=== PATIENT | female | born 1980 | race Caucasian/White ===

== ENCOUNTER 2017-01-30 09:29 | Emergency (ER) | payer MEDICAID, OTHER ==
[2017-01-30] MEDS ORDERED: BABY ASPIRIN 81 MG CHEW PO ONE (09:51)
[2017-01-30] MEDS ORDERED: Sodium Chloride 0.9% 1000 ML 1,000 ML IV STA (09:51)
[2017-01-30] MEDS ORDERED: ATARAX 25 MG PO ONE (09:53)
--- NOTE | 2017-01-30 09:59 | ERPHSYRPT ---
- History of Present Illness Time Seen by Provider: 01/30/17 09:35 Source: patient Patient Subjective Stated Complaint: pt brought in via co worker from work for chest pressure that started at 0600 today with dizziness and light headed, no cough or fever Triage Nursing Assessment: pt walked in , alert, resp easy, chest clear, skin w/ d pink, Physician History: CC: dizzy Hx: 36 y/o patient currently on menses. She reports feeling dizzy like she is going to pass out. No vertigo. No N/V/D. She was working at [employer] and felt worse so a corworker brought her to ER. No chest pain or dyspnea but told nurse she has 7/10 heaviness in her chest. No hx of VTE disease. No OCP use. No leg swelling but had a leg cramp this AM. No abd pain. Allergies/Adverse Reactions: No Known Drug Allergies Allergy (Unverified 01/30/17 09:44) Hx Influenza Vaccination/Date Given: No Hx Pneumococcal Vaccination/Date Given: No Immunizations Up to Date: Yes - Review of Systems Constitutional: No Symptoms Eyes: No Symptoms Ears, Nose, & Throat: No Symptoms Respiratory: No Cough, No Dyspnea Cardiac: Chest Pain (heaviness) Abdominal/Gastrointestinal: No Abdominal Pain, No Nausea, No Vomiting, No Diarrhea Skin: No Rash Neurological: Dizziness, No Focal Weakness, No Headache, No Parasthesia All Other Systems: Reviewed and Negative - Past Medical History Pertinent Past Medical History: No - Past Surgical History Past Surgical History: Yes Female Surgical History: Section - Social History Smoking Status: Current some day smoker Exposure to second hand smoke: No Drug Use: none Patient Lives Alone: No - Female History Hx Last Menstrual Period: now - Nursing Vital Signs Nursing Vital Signs: Initial Vital Signs Temperature 98.4 F 01/30/17 09:38 Pulse Rate 89 01/30/17 09:38 Respiratory Rate 16 01/30/17 09:38 Blood Pressure 151/68 01/30/17 09:38 O2 Sat by Pulse Oximetry 97 01/30/17 09:38 Pain Scale Pain Intensity 0 - Physical Exam General Appearance: alert Eye Exam: PERRL/EOMI Ears, Nose, Throat Exam: normal ENT inspection, moist mucous membranes Neck Exam: normal inspection, non-tender, supple Respiratory Exam: normal breath sounds, lungs clear Cardiovascular Exam: regular rate/rhythm Gastrointestinal/Abdomen Exam: soft, No tenderness, No distention Back Exam: normal inspection Extremity Exam: normal inspection, normal range of motion Neurologic Exam: alert, oriented x 3, cooperative, sensation nml, No motor deficits Skin Exam: warm, dry, No rash SpO2 Interpretation: normal SpO2: 97 Oxygen Delivery: Room Air - Course Nursing assessment & vital signs reviewed: Yes EKG Interpreted by Me: RATE (71), Sinus Rhythm, NORMAL AXIS, NORMAL INTERVALS ( QTc 424), NORMAL QRS, Non-specific ST Changes - Radiology Exams cxr X-ray Interpretation: Teleradiologist Report, Negative Ordered Tests: Active Orders 24 hr Category Date Time Status Fraud Investigator STAT Care 01/30/17 09:52 Active Clean Catch Urine Specimen STAT Care 01/30/17 09:51 Active EKG-ER Only STAT Care 01/30/17 09:51 Active IV Insertion STAT Care 01/30/17 09:51 Active Pulse Oximetry (ED) STAT Care 01/30/17 09:51 Active CHEST 1 VIEW (PORTABLE) Stat Exams 01/30/17 09:52 Completed CBC W DIFF Stat Lab 01/30/17 10:05 Completed CMP Stat Lab 01/30/17 10:05 Completed HCG QUALITATIVE,SERUM Stat Lab 01/30/17 10:05 Completed NT PRO BNP Stat Lab 01/30/17 10:59 Completed TROPONIN Q3H Lab 01/30/17 10:05 Completed TROPONIN Q3H Lab 01/30/17 12:36 Completed TROPONIN Q3H Lab 01/30/17 16:00 Ordered TROPONIN Q3H Lab 01/30/17 19:00 Ordered TROPONIN Q3H Lab 01/30/17 22:00 Ordered Urine Triage Profile Stat Lab 01/30/17 10:05 Completed Medication Summary Discontinued Medications Generic Name Dose Route Start Last Admin Trade Name Freq PRN Reason Stop Dose Admin Aspirin 81 mg 01/30/17 09:51 01/30/17 10:17 Baby Aspirin 81 Mg Chew PO 01/30/17 09:52 81 mg STAT ONE Administration Aspirin Confirm 01/30/17 10:15 Baby Aspirin 81 Mg Chew Administered 01/30/17 10:16 Dose 81 mg .ROUTE .STK-MED ONE Hydroxyzine HCl 50 mg 01/30/17 09:53 01/30/17 10:16 Atarax 25 Mg PO 01/30/17 09:54 50 mg STAT ONE Administration Hydroxyzine HCl Confirm 01/30/17 10:15 Atarax 25 Mg Administered 01/30/17 10:16 Dose 50 mg .ROUTE .STK-MED ONE Sodium Chloride 1,000 mls @ 999 mls/hr 01/30/17 09:51 01/30/17 10:17 Sodium Chloride 0.9% 1000 Ml IV 01/30/17 10:51 999 mls/hr .Q1H1M STA Administration Sodium Chloride Confirm 01/30/17 10:15 Sodium Chloride 0.9% 1000 Ml Administered 01/30/17 10:16 Dose 1,000 mls @ ud .ROUTE .STK-MED ONE Lab/Rad Data: Laboratory Result Diagrams 01/30/17 10:05 01/30/17 10:05 Laboratory Results 01/30/17 01/30/17 01/30/17 Range/Units 12:36 10:59 10:05 WBC (4.0-10.5) K/mm3 RBC (4.1-5.4) M/mm3 Hgb (12.0-16.0) gm/dl Hct (35-47) % MCV (78-100) fl MCH (26-32) pg MCHC (32-36) g/dl RDW (11.5-14.0) % Plt Count (150-450) K/mm3 MPV (6-9.5) fl Gran % (36.0-66.0) % Lymphocytes % (24.0-44.0) % Monocytes % (0.0-12.0) % Eosinophils % (0.00-5.0) % Basophils % (0.0-0.4) % Basophils # (0-0.4) Sodium (136-145) mEq/L Potassium (3.5-5.1) mEq/L Chloride (98-107) mEq/L Carbon Dioxide (21-32) mEq/L Anion Gap (5-15) MEQ/L BUN (9-20) mg/dL Creatinine (0.55-1.30) mg/dl Estimated GFR ML/MIN Glucose (70-110) MG/DL Calcium (8.5-10.1) mg/dL Total Bilirubin (0.2-1.0) mg/dL AST (15-37) U/L ALT (12-78) U/L Alkaline Phosphatase (46-116) U/L Troponin I < 0.017 (0.000-0.056) ng/ml NT-Pro-B Natriuret Pep 68 (0-125) pg/ml Serum Total Protein (6.4-8.2) gm/dL Albumin (3.4-5.0) g/dL Serum , Qual NEGATIVE (Negative) Urine Opiates Level (NEGATIVE) Ur Methadone (NEGATIVE) Urine Barbiturates (NEGATIVE) Ur Phencyclidine (PCP) (NEGATIVE) Urine Amphetamine (NEGATIVE) U Benzodiazepine Level (NEGATIVE) Urine Cocaine (NEGATIVE) Urine Marijuana (THC) (NEGATIVE) 01/30/17 01/30/17 01/30/17 Range/Units 10:05 10:05 10:05 WBC (4.0-10.5) K/mm3 RBC (4.1-5.4) M/mm3 Hgb (12.0-16.0) gm/dl Hct (35-47) % MCV (78-100) fl MCH (26-32) pg MCHC (32-36) g/dl RDW (11.5-14.0) % Plt Count (150-450) K/mm3 MPV (6-9.5) fl Gran % (36.0-66.0) % Lymphocytes % (24.0-44.0) % Monocytes % (0.0-12.0) % Eosinophils % (0.00-5.0) % Basophils % (0.0-0.4) % Basophils # (0-0.4) Sodium 141 (136-145) mEq/L Potassium 3.6 (3.5-5.1) mEq/L Chloride 105 (98-107) mEq/L Carbon Dioxide 26.0 (21-32) mEq/L Anion Gap 13.6 (5-15) MEQ/L BUN 14 (9-20) mg/dL Creatinine 0.93 (0.55-1.30) mg/dl Estimated GFR > 60 ML/MIN Glucose 164 H (70-110) MG/DL Calcium 8.7 (8.5-10.1) mg/dL Total Bilirubin 0.30 (0.2-1.0) mg/dL AST 17 (15-37) U/L ALT 28 (12-78) U/L Alkaline Phosphatase 57 (46-116) U/L Troponin I < 0.017 (0.000-0.056) ng/ml NT-Pro-B Natriuret Pep (0-125) pg/ml Serum Total Protein 7.1 (6.4-8.2) gm/dL Albumin 3.7 (3.4-5.0) g/dL Serum , Qual (Negative) Urine Opiates Level NEG. (NEGATIVE) Ur Methadone NEG. (NEGATIVE) Urine Barbiturates NEG. (NEGATIVE) Ur Phencyclidine (PCP) NEG. (NEGATIVE) Urine Amphetamine NEG. (NEGATIVE) U Benzodiazepine Level NEG. (NEGATIVE) Urine Cocaine NEG. (NEGATIVE) Urine Marijuana (THC) NEG. (NEGATIVE) 01/30/17 Range/Units 10:05 WBC 7.1 (4.0-10.5) K/mm3 RBC 4.62 (4.1-5.4) M/mm3 Hgb 13.3 (12.0-16.0) gm/dl Hct 40.5 (35-47) % MCV 87.7 (78-100) fl MCH 28.8 (26-32) pg MCHC 32.8 (32-36) g/dl RDW 13.1 (11.5-14.0) % Plt Count 226 (150-450) K/mm3 MPV 10.2 H (6-9.5) fl Gran % 79.1 H (36.0-66.0) % Lymphocytes % 15.5 L (24.0-44.0) % Monocytes % 4.9 (0.0-12.0) % Eosinophils % 0.4 (0.00-5.0) % Basophils % 0.1 (0.0-0.4) % Basophils # 0.01 (0-0.4) Sodium (136-145) mEq/L Potassium (3.5-5.1) mEq/L Chloride (98-107) mEq/L Carbon Dioxide (21-32) mEq/L Anion Gap (5-15) MEQ/L BUN (9-20) mg/dL Creatinine (0.55-1.30) mg/dl Estimated GFR ML/MIN Glucose (70-110) MG/DL Calcium (8.5-10.1) mg/dL Total Bilirubin (0.2-1.0) mg/dL AST (15-37) U/L ALT (12-78) U/L Alkaline Phosphatase (46-116) U/L Troponin I (0.000-0.056) ng/ml NT-Pro-B Natriuret Pep (0-125) pg/ml Serum Total Protein (6.4-8.2) gm/dL Albumin (3.4-5.0) g/dL Serum , Qual (Negative) Urine Opiates Level (NEGATIVE) Ur Methadone (NEGATIVE) Urine Barbiturates (NEGATIVE) Ur Phencyclidine (PCP) (NEGATIVE) Urine Amphetamine (NEGATIVE) U Benzodiazepine Level (NEGATIVE) Urine Cocaine (NEGATIVE) Urine Marijuana (THC) (NEGATIVE) - Progress Progress Note: 01/30/17 11:55 Pt is feeling much better after atarax and IVF. Will get 3 hour troponin and release if stable. Advised she have her blood sugar rechecked thru family doctor. 01/30/17 14:24 Second troponin negative. She feels much better. Advised follow up with Dr Frazier. She wants to go home. Her discomfort was vague and atypical. Rx hydroxyzine. Counseled pt/family regarding: lab results, diagnosis, need for follow-up, rad results - Departure Time of Disposition: 14:25 Departure Disposition: Home Clinical Impression: Dizziness, Atypical chest pain Condition: Stable Critical Care Time: No Referrals: CHESTER FRAZIER [Primary Care Provider] - Instructions: Atypical Chest Pain Additional Instructions: Sip plenty of fluids. No driving today or while taking hydroxyzine. Rx hydroxyzine. Follow up tomorrow with Dr Frazier. Prescriptions: Hydroxyzine HCl 1 tab PO Q6H PRN PRN #15 tablet PRN Reason: rash,rest
[2017-01-30] MEDS ORDERED: ATARAX 25 MG ONE (10:15)
[2017-01-30] MEDS ORDERED: BABY ASPIRIN 81 MG CHEW ONE (10:15)
[2017-01-30] MEDS ORDERED: Sodium Chloride 0.9% 1000 ML 1,000 ML ONE (10:15)
[2017-01-30 10:26] LABS: BASOPHIL % 0.1 % (0.0-0.4); Eosinophil % 0.4 % (0.00-5.0); Granulocytes % 79.1 % (36.0-66.0); Lymphocytes % 15.5 % (24.0-44.0); Mean Cell Volume 87.7 fl (78-100); Mean Corpuscular Hemoglobin 28.8 pg (26-32); Mean Platelet Volume 10.2 fl (6-9.5); Monocytes % 4.9 % (0.0-12.0); Platelet Count 226 K/mm3 (150-450); Red Blood Count 4.62 M/mm3 (4.1-5.4); Red Cell Distribution Width 13.1 % (11.5-14.0); White Blood Count 7.1 K/mm3 (4.0-10.5)
[2017-01-30 10:54] LABS: ALBUMIN 3.7 g/dL (3.4-5.0); ALKALINE PHOSPHATASE 57 U/L (46-116); ANION GAP 13.6 MEQ/L (5-15); BLOOD UREA NITROGEN 14 mg/dL (9-20); CHLORIDE 105 mEq/L (98-107); Glucose 164 MG/DL (70-110); Potassium 3.6 mEq/L (3.5-5.1); SGOT/AST 17 U/L (15-37); SGPT/ALT 28 U/L (12-78); SODIUM 141 mEq/L (136-145); Total Protein 7.1 gm/dL (6.4-8.2)
--- NOTE | 2017-01-30 11:13 | XRAY ---
Indication: Chest pain and dizziness. Comparison: None Portable apical lordotic chest demonstrates normal heart, lungs, and bony thorax with a few incidental calcified granulomas.
[2017-01-30 14:24] VITALS: BP 144/75; PULSE 64
[2017-01-30 14:26] VITALS: O2SAT 97
== END 2017-01-30 14:34 | disposition home or self-care (01) ==
LOC: ED 09:29
DX: R42 Dizziness and giddiness (principal); R07.89 Other chest pain
CPT/HCPCS: 36000; 36415; 71010; 80053; 80307; 83880; 84484; 84703; 85025; 93005; 93041; 96360; 99285; A9270-GY

== ENCOUNTER 2017-02-11 07:36 | Emergency (ER) | payer OTHER ==
--- NOTE | 2017-02-11 07:47 | ERPHSYRPT ---
- History of Present Illness Time Seen by Provider: 02/11/17 07:40 Source: patient Exam Limitations: no limitations Physician History: The patient is a 36-year-old female complaining of worsening left ear pain for 4 days. She's had a slight cold a few days before. She denies any drainage. The left side of her face is now beginning to hurt. She did not take any Tylenol or ibuprofen. Past medical history is unremarkable. Timing/Duration: gradual onset Severity: moderate ENT Location: ear (L) Prearrival Treatment: no prearrival treatment Modifying Factors: Improves With: nothing Associated Symptoms: ear pain (L), facial pain/swelling, No ear drainage Allergies/Adverse Reactions: No Known Drug Allergies Allergy (Verified 02/11/17 07:48) Hx Influenza Vaccination/Date Given: No Hx Pneumococcal Vaccination/Date Given: No - Review of Systems Constitutional: No Fever, No Chills Eyes: No Symptoms Ears, Nose, & Throat: Ear Pain Respiratory: No Cough, No Dyspnea Cardiac: No Chest Pain, No Edema, No Syncope Abdominal/Gastrointestinal: No Abdominal Pain, No Nausea, No Vomiting, No Diarrhea Genitourinary Symptoms: No Dysuria Musculoskeletal: No Back Pain, No Neck Pain Skin: No Rash Neurological: No Dizziness, No Focal Weakness, No Sensory Changes Psychological: No Symptoms Endocrine: No Symptoms Hematologic/Lymphatic: No Symptoms Immunological/Allergic: No Symptoms All Other Systems: Reviewed and Negative - Past Medical History Pertinent Past Medical History: No - Past Surgical History Past Surgical History: Yes Female Surgical History: Section - Social History Smoking Status: Current some day smoker Exposure to second hand smoke: No Drug Use: none Patient Lives Alone: No - Nursing Vital Signs Nursing Vital Signs: Initial Vital Signs Temperature 97.7 F 02/11/17 07:40 Pulse Rate 72 02/11/17 07:40 Respiratory Rate 18 02/11/17 07:40 Blood Pressure 138/81 02/11/17 07:40 O2 Sat by Pulse Oximetry 97 02/11/17 07:40 Pain Scale Pain Intensity 7 - Physical Exam General Appearance: mild distress Eye Exam: bilateral eye: normal inspection Ear Exam: bilateral ear: other (cerumen impaction) Nasal Exam: normal inspection Throat Exam: pharynx normal, moist mucus membranes, No tonsillar exudate Neck Exam: supple Cardiovascular/Respiratory Exam: normal breath sounds, regular rate/rhythm Abdominal Exam: non-tender, soft Neurologic Exam: alert, oriented x 3, sensation nml, No motor deficits Skin Exam: normal color, warm, dry SpO2 Interpretation: normal Oxygen Delivery: Room Air Ordered Tests: Active Orders 24 hr Category Date Time Status Ear Irrigation STAT Care 02/11/17 07:52 Active - Progress Progress: improved Progress Note: 02/11/17 08:54 Extensive left here irrigation with warm water was performed in addition to an ear curet. However, even after significant amounts of cerumen was removed, there was still old hard cerumen covering the left tympanic membrane. In more moderate attempt to remove the cerumen of the right ear was performed unsuccessfully. The left ear canal that is now exposed is erythematous and tender. This is likely causing the patient's problem. The patient will be given Augmentin for 10 days. The patient is to use [id number] Debrox and flushing her ear in the shower. Counseled pt/family regarding: diagnosis, need for follow-up - Departure Time of Disposition: 08:57 Departure Disposition: Home Clinical Impression: Ceruminosis, Ear pain, left Condition: Stable Critical Care Time: No Referrals: CHESTER ALEXANDER [Primary Care Provider] - Additional Instructions: You have a significant impaction of both ears with wax. Some of the wax was removed in the ER but he still have significant amounts of wax covering both of your eardrums. Use [id number] D Brox and baby oil to soften the wax. Then use a warm his stream of water from the shower head to help loosen and flushed the wax from your ears over the next few days. Follow-up in 2 or 3 days with your local physician to see if you have successfully removed all of the wax. Take Augmentin 875 to times a day for 10 days. You were also given toradol 60 mg IM in the ER. Prescriptions: Amoxicillin/Potassium Clav [Augmentin 875-125 Tablet] 875 mg PO BID #20 tablet
[2017-02-11] MEDS ORDERED: TORAdol 30 mg Injection IM ONE (09:02)
[2017-02-11] MEDS ORDERED: TORAdol 30 mg Injection ONE (09:06)
[2017-02-11 09:31] VITALS: BP 110/60; PULSE 64; O2SAT 98
== END 2017-02-11 09:30 | disposition home or self-care (01) ==
LOC: ED 07:36
DX: H61.22 Impacted cerumen, left ear (principal)
CPT/HCPCS: 96372; 99283; 99284; J1885

== ENCOUNTER 2017-02-14 09:36 | Emergency (ER) | payer OTHER ==
[2017-02-14 09:49] VITALS: BP 126/75; PULSE 61; O2SAT 97
--- NOTE | 2017-02-14 09:53 | ERPHSYRPT ---
- History of Present Illness Time Seen by Provider: 02/14/17 09:39 Source: patient Physician History: CC: rash left face Hx: 36 y/o patient of Dr Frazier and [facility]. She has had some pain in left ear and face for a week. She was seen in ER and had Rx augmentin for ear infx. She then got a rash in left scalp and was seen at [facility] ER and had Rx for acyclovir and norco. Started acyclovir yesterday. Has 2 norco left. Formerly was on chronic pain meds per INSPECT review. No fever. No blurred vision. Left face and eyelid seemed swollen so she came back to ER. Not . Pain moderate. Quality: burning, itchy, painful Severity: moderate Allergies/Adverse Reactions: No Known Drug Allergies Allergy (Verified 02/11/17 07:48) Hx Tetanus, Diphtheria Vaccination/Date Given: Yes Hx Influenza Vaccination/Date Given: No Hx Pneumococcal Vaccination/Date Given: No - Review of Systems Constitutional: No Fever, No Chills Eyes: No Vision Changes, No Double Vision Respiratory: No Cough, No Dyspnea Abdominal/Gastrointestinal: Diarrhea, No Nausea, No Vomiting Skin: Rash (left scalp and upper face) Neurological: No Focal Weakness All Other Systems: Reviewed and Negative - Past Medical History Pertinent Past Medical History: No - Past Surgical History Past Surgical History: Yes Female Surgical History: Section - Social History Smoking Status: Current some day smoker How long have you smoked: years Exposure to second hand smoke: No Drug Use: none Patient Lives Alone: No - Physical Exam General Appearance: alert Eye Exam: PERRL/EOMI Ears, Nose, Throat Exam: moist mucous membranes Neck Exam: normal inspection, non-tender, supple Respiratory Exam: normal breath sounds Cardiovascular Exam: regular rate/rhythm Gastrointestinal/Abdomen Exam: soft, No tenderness, No distention Extremity Exam: normal inspection, normal range of motion Neurologic Exam: alert, oriented x 3, cooperative, sensation nml, No motor deficits Skin Exam: warm, dry, rash (vesicles and erythema left scalp and forehead, mild on nose, tender) - Course Nursing assessment & vital signs reviewed: Yes - Progress Progress Note: 02/14/17 09:50 She has zoster ophthalmicus. She willl have formal slip lamp exam per eye doctor at [facility] today. Add prednisone. She is on acyclovir. Will Rx norco and she will follow up with Dr Frazier next week. Advised no work until cleared. 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 Continue acyclovir. Rx norco for pain. Follow up next week with Dr Frazier. No work until cleared by Dr Frazier. Go to [facility] for eye exam now. Prescriptions: Hydrocodone/APAP 5/325 [[place] 5/325 mg] 1 each PO Q4-6HPRN PRN #20 tablet PRN Reason: Pain Prednisone 10 mg [Deltasone 10 mg] 0 mg PO UD #60 tablet
== END 2017-02-14 10:29 | disposition home or self-care (01) ==
LOC: ED 09:36
DX: B02.30 Zoster ocular disease, unspecified (principal); R21 Rash and other nonspecific skin eruption
CPT/HCPCS: 99281

== ENCOUNTER 2023-10-27 19:37 | Emergency (ER) | payer OTHER ==
[2023-10-27 19:54] VITALS: RESP 16; TEMP 98.7
[2023-10-27] MEDS ORDERED: Augmentin 875-125 Tablet ONE (20:08)
[2023-10-27] MEDS: Augmentin 875-125 Tablet PO ONE (20:08)
--- NOTE | 2023-10-27 20:31 | ERPHSYRPT ---
- History of Present Illness Time Seen by Provider: 10/27/23 19:39 Source: patient Exam Limitations: no limitations Patient Subjective Stated Complaint: facial tenderness and swelling to left cheek sine friday Triage Nursing Assessment: Pt reports she started experiencing facial tenderness/pressure to left cheek bone/cheek. States today she noticed left cheek started swelling. Minimal relief with heat and ibuprofen. Denies shortness of breath. No apparent respiratory distress noted. Denies abdominal pain/nausea/vomiting. Physician History: 42-year-old female with history of periodontal disease presented to the ER with left maxilla swelling and pain for the last 2 days with progressive worsening. No fever or chills reported. Denies any toothache. Allergies/Adverse Reactions: diphenhydramine Adverse Reaction (Verified 10/27/23 19:45) Hx Tetanus, Diphtheria Vaccination/Date Given: Yes Hx Influenza Vaccination/Date Given: No Hx Pneumococcal Vaccination/Date Given: No Travel Risk - International Travel Have you traveled outside of the country in past 3 weeks: No - Emerging Infectious Disease Are you exhibiting symptoms associated with any current EIDs: No - Review of Systems Constitutional: No Symptoms Eyes: No Symptoms Ears, Nose, & Throat: Sinus Drainage Respiratory: No Symptoms Cardiac: No Symptoms Musculoskeletal: No Symptoms Neurological: No Symptoms Endocrine: No Symptoms Hematologic/Lymphatic: No Symptoms - Past Medical History Pertinent Past Medical History: Yes Psycho-Social History: Anxiety, Panic Disorder - Past Surgical History Past Surgical History: Yes Female Surgical History: Section - Female History Hx Now: No - Social History Smoking Status: Current every day smoker How long have you smoked: years Exposure to second hand smoke: No Drug Use: none Patient Lives Alone: No - Nursing Vital Signs Nursing Vital Signs: Initial Vital Signs Temperature 98.7 F 10/27/23 19:41 Pulse Rate 80 10/27/23 19:41 Respiratory Rate 16 10/27/23 19:41 Blood Pressure 158/103 10/27/23 19:41 O2 Sat by Pulse Oximetry 96 10/27/23 19:41 Pain Scale Pain Intensity 0 - Physical Exam General Appearance: no apparent distress, alert Eye Exam: bilateral eye: normal inspection, PERRL, EOMI Ear Exam: bilateral ear: auricle normal, canal normal, TM normal Nasal Exam: normal inspection, sinus tenderness (Left maxilla tenderness with swelling of upper gingiva. No fluctuation.) Throat Exam: normal, pharynx normal Neck Exam: normal inspection, non-tender, supple, full range of motion Cardiovascular/Respiratory Exam: normal breath sounds, regular rate/rhythm Neurologic Exam: alert, oriented x 3, cooperative, utility pipe layer II-XII nml as tested Skin Exam: normal color SpO2 Interpretation: normal SpO2: 96 O2 Delivery: Room Air Ordered Tests: Medication Summary Discontinued Medications Generic Name Dose Route Start Last Admin Trade Name Elliot PRN Reason Stop Dose Admin Amoxicillin/Clavulanate Potassium 875 mg 10/27/23 19:55 10/27/23 20:08 Amox Tr/Potassium Clavulanate 875 Mg Tablet PO 10/27/23 19:56 875 mg STAT ONE Administration Amoxicillin/Clavulanate Potassium Confirm 10/27/23 20:08 Amox Tr/Potassium Clavulanate 875 Mg Tablet Administered 10/27/23 20:09 Dose 875 mg .ROUTE .STK-MED ONE - Progress Progress: unchanged Progress Note: 10/27/23 20:28 42-year-old is evaluated for left maxilla/upper jaw pain and swelling. She has tenderness. Does have gingival swelling with no fluctuation. I believe she is having gingival/dental infection. She has history of periodontal disease. I started on Augmentin and outpatient dental follow-up recommended. Offered pain medication which she does not want it. Counseled pt/family regarding: diagnosis, need for follow-up Medical Desision Making - Diagnostic Testing Diagnostic test were ordered, analyzed, and reviewed by me: No - Risk of complications The pt has a mod risk of morbidity or mortality based on: Need for prescription drug management - Departure Departure Disposition: Home Clinical Impression: Dental infection Condition: Stable Critical Care Time: No Referrals: CHESTER ALEXANDER [Primary Care Provider] - Follow up with PCP 1 day Instructions: Tooth Abscess ED Additional Instructions: Take Tylenol/ibuprofen as needed. Follow-up with primary care and dentist for reevaluation. Return to ER for any worsening. Prescriptions: Amox Tr/Potass Clav. 875 mg [Augmentin 875-125 Tablet] 875 mg PO BID #14 tablet
[2023-10-27 20:33] VITALS: BP 145/89; PULSE 76; O2SAT 97
== END 2023-10-27 20:35 | disposition home or self-care (01) ==
LOC: ED 19:37
DX: K04.7 Periapical abscess without sinus (principal); R22.0 Localized swelling, mass and lump, head; Z72.0 Tobacco use
CPT/HCPCS: 99281; A9270-GY